=== PATIENT | female | born 1945 | race Caucasian/White ===

== ENCOUNTER 2023-10-14 09:24 | Emergency (ER) | payer MEDICARE, SELFPAY ==
[2023-10-14] VITALS (47 sets, daily range): BP systolic 102–188; BP diastolic 80–112; PULSE 82–105; RESP 13–23; TEMP 36.1–36.8; O2SAT 90–100
--- NOTE | ~2023-10-14 | CT_ITS ---
EXAMINATION: CT cervical spine wo con DATE: 10/14/2023 10:57 INDICATION: Status post fall. Neck pain. TECHNIQUE: Computed tomography (CT) of the paranasal sinuses was performed without intravenous contra st. The dose-length product was 452.46 mGy-cm. Automated exposure control and iterative reconstructio n technique were employed. COMPARISON: None FINDINGS: Vertebral body heights are maintained. There is disc narrowing at C6-7. Mild loss of verteb ral body height at C6, likely chronic. Odontoid process is normal. There is mild-moderate multilevel uncinate and facet hypertrophy. Lung apices are unremarkable. IMPRESSION: 1. No acute abnormality of the cervical spine. 2: Moderate cervical spondylosis. Reviewed, dictated and finalized at location L. FEATHER MACHINE OPERATOR
--- NOTE | ~2023-10-14 | XR_ITS ---
EXAMINATION: XR chest 1V portable 10/14/2023 10:57 INDICATION: Altered mental status PROCEDURE: AP portable chest COMPARISON: No prior studies for comparison. FINDINGS: The lungs are clear. The cardiomediastinal silhouette is within normal limits. There are no pleural effusions. There is no pneumothorax suspected. IMPRESSION: 1: NO ACUTE CARDIOPULMONARY DISEASE. Reviewed, dictated and finalized at location L. HOP DANCER
--- NOTE | ~2023-10-14 | CT_ITS ---
EXAMINATION: CT brain wo con DATE: 10/14/2023 10:57 INDICATION: Status post fall. TECHNIQUE: Computed tomography (CT) of the head was performed without intravenous contrast. The dose- length product was 681.00 mGy-cm. Automated exposure control and iterative reconstruction technique w ere employed. COMPARISON: None FINDINGS: Generalized atrophy. There are scattered mild periventricular and subcortical white matter changes, most likely related to small vessel ischemic disease (microangiopathy). No ventriculomegaly or midline shift. There is intracranial atherosclerosis. Basilar cisterns are patent. No acute infarc tion, hemorrhage or mass. There is mild mucosal thickening of the right maxillary, ethmoid and spheno id sinuses. Mastoids are pneumatized. IMPRESSION: 1. No acute intracranial abnormality. 2: Mild sinusitis. 3: Chronic age-related findings. Reviewed, dictated and finalized at location L. LLIGENCE CONSULTANT
--- NOTE | ~2023-10-14 | XR_ITS ---
AP view of the pelvis and AP and lateral views of the bilateral hips Clinical history: Pain Findings: No acute fracture or dislocation is seen. There is severe osteoarthritis of the right hip j oint, with marked joint space narrowing, reactive sclerosis, bony productive change, and remodeling o f the femoral head. There is mild degenerative change of the left hip joint. There is probable diffus e osteopenia. Soft tissues are unremarkable. Impression: No acute fracture or dislocation evident. 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 Reviewed, dictated and finalized at location M. UTER CONSOLE OPERATOR Impression: No acute fracture or dislocation evident. 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
--- NOTE | 2023-10-14 09:48 | ECG_ITS ---
Measurements Intervals [place] Rate: 89 P: 55 CT: 173 QRS: -51 QRSD: 96 T: 58 QT: 383 QTc: 468 Interpretive Statements SINUS RHYTHM LEFT ANTERIOR FASCICULAR BLOCK [QRS AXIS <= -45, QR IN I, RS IN II] NO PREVIOUS ECG AVAILABLE FOR COMPARISON Electronically Signed On 10-14-2023 19:22:18 EXPERIMENTAL PLASTICS FABRICATOR by Ethel Potts M.D.
[2023-10-14] MEDS: SODIUM CHLORIDE 0.9% IV 1,000 ML 999 ML IV CONT (10:02)
[2023-10-14 10:18] LABS: Basophils Absolute Auto 0.01 K/mm3 (0.00-0.10); Basophils Percent Auto 0.1 % (0.0-1.0); Hematocrit 46.4 % (35.0-42.0); Hemoglobin 15.1 g/dL (11.7-13.8); Immature Granulocyte Absolute 0.06 K/mm3 (0.00-0.00); Immature Granulocyte Percent A 0.7 % (0.0-0.0); Lymphocytes Percent Auto 7.7 % (18.0-42.0); Mean Corpuscular HGB Conc 32.5 g/dL (32.0-36.0); Mean Corpuscular Volume 92.1 fL (78.0-102.0); Mean Platelet Volume 9.8 fl (9.2-11.8); Monocytes Absolute Auto 0.92 K/mm3 (0.10-0.90); Monocytes Percent Auto 10.1 % (2.0-11.0); Neutrophils Absolute Auto 7.4 K/mm3 (1.7-7.2); Neutrophils Percent Auto 81.4 % (50.0-70.0); Platelet Count Result 322 K/mm3 (150-420); Red Blood Count 5.04 M/mm3 (4.20-5.40); Red Cell Distribution Width 14.2 % (11.6-14.4); White Blood Count 9.1 K/mm3 (4.8-10.8)
[2023-10-14 10:32] LABS: INR 1.1; Partial Thromboplastin Time 27.3 SEC (23.90-30.70); Prothrombin Time 12.3 Seconds (9.50-12.10)
[2023-10-14 10:39] LABS: Lactic Acid Reflex 2.3 mmol/L (0.4-2.0)
[2023-10-14 10:49] LABS: Alanine Aminotransferase 180 U/L (14-59); Albumin Level 3.4 g/dL (3.4-5.0); Alkaline Phosphatase 54 U/L (46-116); Ammonia < 10 umol/L (11-32); Anion Gap 9 mmol/L (8-16); Aspartate Amino Transferase 181 U/L (15-37); Bilirubin,Total 1.4 mg/dL (0.00-1.00); Blood Urea Nitrogen 35 mg/dL (7-18); CRP 5.7 mg/dL (0.0-0.9); Carbon Dioxide 28 mmol/L (21-32); Chloride 108 mmol/L (98-108); Creatine Kinase 3286 U/L (26-192); Estimated CRCL calculation 51 ml/min; Estimated Glomerular Filt Rate > 60; Glucose 217 mg/dL (70-99); NT Pro B Type Natriuretic Pept 3072 pg/mL (0-450); Osmolality Calculated 315 mOsm/kg (285-295); Potassium 3.7 mmol/L (3.5-5.1); Sodium 145 mmol/L (136-145); Thyroid Stimulating Hormone 0.27 uIU/mL (0.36-3.74)
[2023-10-14 10:50] LABS: Troponin I 659.3 ng/L (0.00-60.4)
[2023-10-14 10:53] LABS: SARS-CoV-2 RNA PCR Positive (Negative)
[2023-10-14 10:54] LABS: Influenza A QL RT-PCR Negative (Negative); Influenza B QL RT-PCR Negative (Negative); RSV RNA, RT-PCR Negative (Negative)
[2023-10-14 11:02] LABS: Appearance Urine Clear (Clear); Bilirubin Urine 2+ (Negative); Blood Urine 3+ (Negative); Glucose Urine UA Negative (Negative); Ketones Urine 1+ (Negative); Leukocyte Esterase Ur Negative LEU/UL (Negative); Nitrate Urine Negative (Negative); Protein Urine 3+ (Negative); Specific Grav Ur 1.025 (1.010-1.020); pH Urine 6.5 (5.0-8.0)
[2023-10-14 11:07] LABS: Add Urine Microscopic? YES; Bacteria Urine 1+ /hpf; Color Urine Dark Yellow (Yellow); Squamous Epithelial Cell Urine Rare /hpf (Few); WBC Urine None seen /hpf (0-3)
[2023-10-14 11:09] LABS: Amphetamine Screen Urine Negative (Negative); Barbiturate Screen Urine Negative (Negative); Benzodiazepines Screen Urine Negative (Negative); Cannabinoid Screen Urine Negative (Negative); Cocaine Screen Urine Negative (Negative); Methadone Screen Urine Negative (Negative); Opiate Screen Urine Negative (Negative); Phencyclidine Screen Urine Negative (Negative)
--- NOTE | 2023-10-14 11:21 | ED.FALL ---
HPI - Fall General Chief Complaint: Fall Stated Complaint: fell Time Seen by Provider: 10/14/23 09:25 Source: patient and EMS Mode of arrival: EMS Limitations: physical limitation and clinical condition History of Present Illness HPI Narrative: this is a 78-year-old female that according to friends has normal cognitive baseline, has a history of hypertension hyperlipidemia. According to friend patient lives at by herself and unknown last normal friends after a few days to check in on her and found her on the bathroom floor she was responsive and alert but oriented x1 complaining of right hip pain, last normal unknown, the patient does respond is confused not aware of where she is at and recognizes her friends but not able to verbalize her friends names. Otherwise she denies any chest pain or shortness of breath no abdominal pain no fever chills no nausea vomiting no diarrhea or constipation. Patient neurologically is intact can move her upper and lower extremities. complaint: fall Onset (ago): unknown Fall witnessed: no Place fall occurred: home Loss of consciousness: unsure Severity: moderate Related Data Home Medications Medication Instructions Recorded Confirmed alprazolam 0.5 mg tablet 0.5 mg PO BID PRN Anxiety 10/14/23 10/14/23 citalopram 40 mg tablet 40 mg PO DAILY 10/14/23 10/14/23 losartan 25 mg tablet 25 mg PO QHS 10/14/23 10/14/23 simvastatin 20 mg tablet 20 mg PO QHS 10/14/23 10/14/23 Allergies Allergy/AdvReac Type Severity Reaction Status Date / Time fluticasone [From Flonase] AdvReac Anxiety Verified 10/14/23 10:21 lovastatin [From Mevacor] AdvReac Other Verified 10/14/23 10:21 meloxicam AdvReac Other Verified 10/14/23 10:21 Review of Systems Review of Systems: All systems reviewed & are unremarkable except as noted in HPI and below PMFSH Past Medical History Medical History HLD (hyperlipidemia) HTN (hypertension) Exam Const: General: no acute distress and ill appearing Nutritional Appearance: obese Limitations: altered mental status and physical limitations HENMT: Head: normal to inspection Ears: external ears normal and TM's normal bilaterally Face/Nose/Sinus: Normal external nose present Face and sinus: normal facial exam Mouth: Yes Normal oral and palatal mucosa present Eyes: Conjunctivae: conjunctivae normal Pupils: Equal, round and reactive pupils present EOM: EOMs intact bilaterally Neck: Neck: normal visual inspection Chest: Chest palpation & inspection: normal inspection of the chest Resp: Effort & Inspection: normal respiratory effort Auscultation: clear to auscultation bilaterally Cardio: Rate: regular rate Rhythm: regular rhythm GI: GI Palp: Yes Soft to palpation Auscultation: normal bowel sounds Urinary Catheter: Urinary Catheter: patent and draining Back/Spine/Pelvis: Back: no CVA tenderness Skin: General skin exam: normal color Rashes: no rashes Neuro: General: moves all extremities, no meningeal signs and no focal motor deficits Cranial nerves: Yes Nystagmus not present Extrem: General: normal to inspection and no clubbing, cyanosis or edema Course Course Emergency Course: patient had an elevated CK over 3000, IV fluids with normal saline have been started, patient denies chest pain does not have any ST or T changes on EKG but did had elevated troponin in the context of an elevated CK level. The patient had a CT scan of the brain which shows no acute intracranial findings, CT scan performed of the cervical spine with no acute fractures, chest x-ray shows no acute cardiopulmonary abnormalities. BNP is elevated at 3072 with a normal white count H&H is 15 and 46 with an AST of 181 ALT of 180 with a glucose of 217, patient is positive for COVID. Patient's troponins are trending downward with initial troponin of 659 currently down to 615 in the context of a CK of 3286 patient is receiving IV fluids for
[2023-10-14] MEDS: ASPIRIN 81 MG CHEWABLE TABLET 324 MG PO (11:33)
[2023-10-14 13:15] LABS: Reflex Lactic Acid Yes or No Add Lactic
[2023-10-14] MEDS: SODIUM CHLORIDE 0.9% IV 1,000 ML 150 ML IV CONT (13:35)
[2023-10-14 13:39] LABS: Troponin I 616.6 ng/L (0.00-60.4)
[2023-10-14 13:42] LABS: Lactic Acid 1.5 mmol/L (0.4-2.0)
--- NOTE | 2023-10-14 16:31 | PC.NURSE ---
at 1615 found standing in room urinating and defecating on floor near bed. pt cleaned and placed back in bed. pt disoriented but following directions.
--- NOTE | 2023-10-20 12:25 | PC.NURSE ---
blood culture reviewed, no growth noted
== END 2023-10-14 16:25 | disposition short-term general hospital (02) ==
PROVIDERS: Emergency Provider Emergency Medicine; PCP Internal Medicine
DX: U07.1 COVID-19 (principal); M62.82 Rhabdomyolysis; E78.5 Hyperlipidemia, unspecified; I10 Essential (primary) hypertension; R41.0 Disorientation, unspecified; Z79.899 Other long term (current) drug therapy; W19.XXXA Unspecified fall, initial encounter; Y92.009 Unspecified place in unspecified non-institutional (private) residence as the place of occurrence of the external cause
CPT/HCPCS: 36415; 70450; 71045; 72125; 73521; 80053; 80307; 81001; 82140; 82550; 83605; 83880; 84443; 84484; 85025; 85610; 85730; 86140; 87040; 87637; 93005; 96360; 96361; 99285; A9270; J7030

== ENCOUNTER 2023-10-22 15:43 | Inpatient (IN) | payer MEDICARE, SELFPAY ==
[2023-10-22 15:50] VITALS: PULSE 72; RESP 18; O2SAT 95
--- NOTE | 2023-10-22 15:50 | PC.NURSE ---
Patient arrived to hospital via transport service in /, from [place]. Dog Barber met patient in [facility] and escorted patient to unit. Patient able to transfer 1 assist gait belt and walker from / to bed. Patient educated on use of call light, bed controls, and general hospital policies, as well as isolation precautions d/t covid. Patient voices understanding, but displays confusion and forgetfulness. Patient has her robe from home on and that appears to be the only personal item patient has.
[2023-10-22 16:06] VITALS: BMI 28.8
[2023-10-22] MEDS: ACETAMINOPHEN 325 MG TABLET 650 MG PO (20:53)
[2023-10-22] MEDS: LOSARTAN POTASSIUM 25 MG TABLET PO (20:55)
[2023-10-22] MEDS: ALPRAZolam (*CRX) 0.5 MG TABLET PO (20:55)
[2023-10-22 20:59] LABS: Glucose Point of Care 135 mg/dl (65-105)
[2023-10-23] VITALS: BP 147/81; PULSE 82; RESP 16; TEMP 36.2; O2SAT 98
[2023-10-23 08:00] VITALS: BP 139/76; PULSE 71; RESP 14; TEMP 36.4; O2SAT 96
--- NOTE | 2023-10-23 08:51 | PM.IMHP ---
H&P: HPI History of Present Illness Date/Time: 10/23/23 08:51 Chief Complaint: SWing, COVID, Weakness , Confusion Narrative: This is a 78 year old female who was admitted to [facility] and tested positive for COVID-19. She has been experiencing extreme weakness and required extensive treatment . Patient has a past medical history of hyperlipemia, hypertension, and is a smoker. She lives alone at home, but it is unclear weather she will be able to return without additional assistance due to her forcefulness. Patient mention that she lives with her dog and she does not really have any family. Mrs. Adkins has been exhibiting repetitive behavior and requires at time frequent reminders. She appears very pale, and we will draw labs within the next week to assess her stability . Physical therapy will evaluate the patient condition. Patient does not exhibit significant respiratory symptoms. We have accepted patient for Swing bed and she will undergo therapy while case management determines the appropriate discharge plan. [facility] Past Medical History Medical History HLD (hyperlipidemia) HTN (hypertension) Social History Social History Smoking packs per day: 1 Smoking cigarettes per day: 20.0 Years smoked: 20 Smoking pack-years: 20.00 Smoking status: Former smoker Tobacco type: cigarettes Second hand tobacco smoke exposure: No Smoking end date: 10/22/93 Alcohol intake: former Substance use: never Lack of Transportation: No Lack of Food: Never True Current Housing: I Have Housing Concerned About Future Housing: No Difficulty Paying Gas/Electric Bills: No Difficulty Paying for Meds: No Currently Unemployed: No Education: High School Diploma/GED Difficulty w/ Childcare or Family Care: No Spiritual care concerns: No Meds Home Medications and Allergies Home Medications Medication Instructions Recorded Confirmed Type alprazolam 0.5 mg tablet 0.5 mg PO BID PRN Anxiety 10/14/23 10/22/23 History citalopram 40 mg tablet 40 mg PO DAILY 10/14/23 10/22/23 History losartan 25 mg tablet 25 mg PO QHS 10/14/23 10/22/23 History aspirin 81 mg chewable tablet 81 mg PO DAILY 10/22/23 10/22/23 History Allergies Allergy/AdvReac Type Severity Reaction Status Date / Time fluticasone [From Flonase] AdvReac Anxiety Verified 10/14/23 10:21 lovastatin [From Mevacor] AdvReac Other Verified 10/14/23 10:21 meloxicam AdvReac Other Verified 10/14/23 10:21 Vital Signs Vital Signs - 24 hr 10/22/23 15:50 10/23/23 00:00 Temperature 97.1 F L Pulse Rate 72 82 Respiratory Rate 18 16 Blood Pressure 147/81 H Pulse Oximetry 95 98 Oxygen Delivery Room Air Room Air Exam Const: General: comfortable and no acute distress Other: Pale HENMT: Ears: TM's normal bilaterally Mouth: Yes moist mucous membranes Eyes: General: appearance normal, both eyes and all related structures Sclera: sclerae normal Pupils: Equal, round and reactive pupils present Resp: Effort & Inspection: normal respiratory effort Auscultation: clear to auscultation bilaterally Other: intermitten wheeze noted Cardio: Rate: regular rate GI: GI Palp: Yes Soft to palpation Auscultation: normal bowel sounds Skin: General skin exam: normal color (PALE) Assessment and Plan Assessment and plan (1) COVID: Code(s): U07.1 - COVID-19 Status: Acute Assessment and Plan: droplett isolation monitor for respiratory symptoms PT/Ot (2) HTN (hypertension): Code(s): I10 - Essential (primary) hypertension Status: Acute Assessment and Plan: monitor continue home mediction adjust as indicated (3) HLD (hyperlipidemia): Code(s): E78.5 - Hyperlipidemia, unspecified Status: Acute Assessment and Plan: continue home medication
[2023-10-23] MEDS: CITALOPRAM HYDROBROMIDE 20 MG TABLET 40 MG PO (08:57)
[2023-10-23] MEDS: ASPIRIN 81 MG CHEWABLE TABLET PO (08:57)
[2023-10-23 16:35] VITALS: BP 141/69; PULSE 78; RESP 16; TEMP 36.2; O2SAT 99
[2023-10-23] MEDS: LOSARTAN POTASSIUM 25 MG TABLET PO (21:22)
--- NOTE | 2023-10-23 22:32 | PC.NURSE ---
report to andie fernandez rn. all questions answered. released care of pt.
[2023-10-24] VITALS: BP 140/70; PULSE 71; RESP 20; TEMP 36.5; O2SAT 98
--- NOTE | 2023-10-24 00:21 | PC.NURSE ---
Patient up to bathroom x2 since 2300. Patient currenty calling out. Nurse entered room to see what patient wanted and patient wanted to know where everyone is. Nurse explained that staff is aeake and at the desk charting. Patient stated she wanted to get out of bed. Nurse oriented patient to time and place. Patient continued to state she wanted out of bed. Nurse assisted pateint to chair and gave her the call light and belongings. Patient currently watching tv legs elevated in the recliner.
--- NOTE | 2023-10-24 01:26 | PC.NURSE ---
Patient yelled out for assistance. Patient again asked nurse why no one was up walking around. Nurse reoriented patient about time and place and explained that the staff were awake at the desk. Patient requested to go back to bed. Nurse assisted patient to the bathroom and then back to bed. Positioned for comfort, warm blanket provided, fresh ice water given. Call light and belongings within reach.
--- NOTE | 2023-10-24 01:59 | PC.NURSE ---
Patient in bed resting quietly. No c/o offered. Call light and belongings within reach.
--- NOTE | 2023-10-24 03:16 | PC.NURSE ---
Patient resting quietly. Call light and belongings withn reach.
[2023-10-24 08:00] VITALS: BP 138/70; PULSE 65; RESP 14; TEMP 36.3; O2SAT 96
[2023-10-24] MEDS: CITALOPRAM HYDROBROMIDE 20 MG TABLET 40 MG PO (09:31)
[2023-10-24] MEDS: ASPIRIN 81 MG CHEWABLE TABLET PO (09:32)
--- NOTE | 2023-10-24 14:44 | PC.NURSE ---
Dressing changed to right elbow. The elbow area is open the size of a quarter with green drainage moderate amount. No odor noted.
[2023-10-24 16:30] VITALS: BP 170/86; PULSE 73; RESP 18; TEMP 36.3; O2SAT 98
[2023-10-24] MEDS: LOSARTAN POTASSIUM 25 MG TABLET PO (19:59)
[2023-10-24] MEDS: ACETAMINOPHEN 325 MG TABLET 650 MG PO (19:59)
[2023-10-24] MEDS: ALPRAZolam (*CRX) 0.5 MG TABLET PO (19:59)
[2023-10-24 23:46] VITALS: BP 134/80; PULSE 76; RESP 17; TEMP 36.5; O2SAT 96
[2023-10-25 07:48] VITALS: BP 163/79; PULSE 64; RESP 18; TEMP 36.3; O2SAT 97
[2023-10-25] MEDS: ASPIRIN 81 MG CHEWABLE TABLET PO (08:15)
[2023-10-25] MEDS: CITALOPRAM HYDROBROMIDE 20 MG TABLET 40 MG PO (08:32)
--- NOTE | 2023-10-25 12:28 | PM.EVENT ---
Event Note Event Note Event Note: right elbow has a scab on it no drainage noted. It is important to keep open to air but if she continue to bump it a mepilax she would benfit from or a elbow protector and then remove at bed time so she does not bump it.
[2023-10-25 13:26] LABS: Hematocrit 37.7 % (35.0-42.0); Mean Corpuscular HGB Conc 31.8 g/dL (32.0-36.0); Mean Corpuscular Hemoglobin 29.9 pg (27.0-31.0); Mean Platelet Volume 9.3 fl (9.2-11.8); Platelet Count Result 391 K/mm3 (150-420); Red Blood Count 4.01 M/mm3 (4.20-5.40); Red Cell Distribution Width 13.7 % (11.6-14.4); White Blood Count 5.8 K/mm3 (4.8-10.8)
[2023-10-25 13:36] LABS: Anion Gap 5 mmol/L (8-16); Blood Urea Nitrogen 7 mg/dL (7-18); Calcium 8.6 mg/dL (8.5-10.1); Carbon Dioxide 31 mmol/L (21-32); Chloride 99 mmol/L (98-108); Estimated CRCL calculation 55 ml/min; Estimated Glomerular Filt Rate > 60; Glucose 202 mg/dL (70-99); Osmolality Calculated 284 mOsm/kg (285-295); Sodium 135 mmol/L (136-145)
[2023-10-25 16:00] VITALS: BP 136/70; PULSE 69; RESP 18; TEMP 36.5; O2SAT 96
[2023-10-25] MEDS: ACETAMINOPHEN 325 MG TABLET 650 MG PO (20:47)
[2023-10-25] MEDS: ALPRAZolam (*CRX) 0.5 MG TABLET PO (20:49)
[2023-10-25] MEDS: LOSARTAN POTASSIUM 25 MG TABLET PO (20:49)
--- NOTE | 2023-10-25 21:35 | PC.NURSE ---
Patient's pain was re-assessed after given Tylenol 650 mg PO. Patient was sleeping, resting comfortably. FLACC score was 0.
[2023-10-26] VITALS: BP 137/77; PULSE 70; RESP 16; TEMP 36.6; O2SAT 95
--- NOTE | 2023-10-26 06:14 | PC.NURSE ---
Patient was up twice to use the toilet, ambulating well with walker, gait belt, and assist of one. Patient forgets to use the call light, and sets off her bed alarm. When she is reminded to wait until the nurse arrives on the intercom, patient is able to wait for the nurse. She does not like the alarm, but needs it for safety. Otherwise, patient is cooperative and pleasant with staff. Patient was able to sleep through the night except for when up to use the toilet.
[2023-10-26 08:00] VITALS: BP 168/85; PULSE 66; RESP 16; TEMP 36.1; O2SAT 96
[2023-10-26] MEDS: ASPIRIN 81 MG CHEWABLE TABLET PO (08:17)
[2023-10-26] MEDS: CITALOPRAM HYDROBROMIDE 20 MG TABLET 40 MG PO (08:17)
[2023-10-26] MEDS: ACETAMINOPHEN 325 MG TABLET 650 MG PO ×2 (09:55→21:32)
[2023-10-26 16:00] VITALS: BP 135/78; PULSE 65; RESP 16; TEMP 36.4; O2SAT 97
[2023-10-26] MEDS: ALPRAZolam (*CRX) 0.5 MG TABLET PO (21:35)
[2023-10-26] MEDS: LOSARTAN POTASSIUM 25 MG TABLET PO (21:35)
[2023-10-27] VITALS: BP 160/73; PULSE 69; RESP 16; TEMP 36.5; O2SAT 98
[2023-10-27 08:00] VITALS: BP 158/70; PULSE 72; RESP 14; TEMP 36.6; O2SAT 98
[2023-10-27] MEDS: CITALOPRAM HYDROBROMIDE 20 MG TABLET 40 MG PO (09:03)
[2023-10-27] MEDS: ASPIRIN 81 MG CHEWABLE TABLET PO (09:04)
[2023-10-27 16:00] VITALS: BP 146/70; PULSE 64; RESP 16; TEMP 36.3; O2SAT 99
[2023-10-27] MEDS: ALPRAZolam (*CRX) 0.5 MG TABLET PO (20:29)
[2023-10-27] MEDS: LOSARTAN POTASSIUM 25 MG TABLET PO (20:29)
[2023-10-27] MEDS: ACETAMINOPHEN 325 MG TABLET 650 MG PO (20:29)
[2023-10-27 23:21] VITALS: BP 146/73; PULSE 63; RESP 16; TEMP 36.5; O2SAT 96
[2023-10-28 08:00] VITALS: BP 108/60; PULSE 75; RESP 14; TEMP 36.2; O2SAT 96
[2023-10-28] MEDS: ASPIRIN 81 MG CHEWABLE TABLET PO (08:31)
[2023-10-28] MEDS: CITALOPRAM HYDROBROMIDE 20 MG TABLET 40 MG PO (08:31)
--- NOTE | 2023-10-28 11:36 | P.DS_ITS ---
DS: Summary Time Spent with Patient Time attestation: Total time spent providing and/or coordinating discharge services: Discharge Plan Discharge Patient Disposition: Home Health Service Discharge Instructions: Per Care Coordination: [facility] will see you at your home and will call the day prior to their visit. Patient Instructions: Antibiotic Form Stand Alone Forms: General Discharge Information Discharge Medications: No Action alprazolam 0.5 mg tablet 0.5 mg PO BID PRN (Reason: Anxiety) losartan 25 mg tablet 25 mg PO QHS citalopram 40 mg tablet 40 mg PO DAILY aspirin [Adult Aspirin] 81 mg Tablet,Chewable 81 mg PO DAILY Date of admission: 10/22/23 15:43 Primary Care Provider: Sajan Posada Admitting Provider: Viraj Wing Attending physician on admission: Viraj Wing
[2023-10-28 16:35] VITALS: BP 137/65; PULSE 69; RESP 16; TEMP 36.5; O2SAT 97
[2023-10-28] MEDS: ALPRAZolam (*CRX) 0.5 MG TABLET PO (21:29)
[2023-10-28] MEDS: LOSARTAN POTASSIUM 25 MG TABLET PO (21:29)
[2023-10-29] VITALS: BP 154/67; PULSE 60; RESP 16; TEMP 36.2; O2SAT 97
[2023-10-29 07:35] VITALS: BP 130/72; PULSE 60; RESP 18; TEMP 36.2; O2SAT 98
[2023-10-29] MEDS: ASPIRIN 81 MG CHEWABLE TABLET PO (08:45)
[2023-10-29] MEDS: CITALOPRAM HYDROBROMIDE 20 MG TABLET 40 MG PO (08:46)
--- NOTE | 2023-10-29 12:45 | PM.DS ---
DS: Admitting Diagnosis Discharge Date 10/29/2023 Admitting Diagnosis COVID, hypertension, hyperlipidemia DS: Discharge Diagnosis Discharge Diagnosis (1) COVID: Code(s): U07.1 - COVID-19 Status: Acute (2) HTN (hypertension): Code(s): I10 - Essential (primary) hypertension Status: Acute (3) HLD (hyperlipidemia): Code(s): E78.5 - Hyperlipidemia, unspecified Status: Acute (4) Cognitive impairment: Code(s): R41.89 - Other symptoms and signs involving cognitive functions and awareness Status: Acute Assessment and Plan: Likely related to or due to Covid DS: Summary Hospital Course Reason for hospitalization: patient admitted to swing bed for rehabilitation related to physical and cognitive deconditioning due to COVID Hospital Course: Patient admitted to swing bed status for rehabilitation related to physical and cognitive deconditioning due to COVID. She progressed with therapy doing well able to ambulate 180 ft upon discharge. Cognitively, patient was very confused at times and needed to be prompted on multiple step problems. Initial discharge plan was for patient to return home where she lives alone with her dog however due to cognitive impairment she was not able to return home. Referral to local jail per family choice. Attempted to transition SNF days to local jail but insurance declined. She will go assisted pending Medicaid. Status at Discharge Cognitive/behavioral status at discharge: Awake alert confused and pleasant Functional status at discharge: uses cane/walker Overall status at discharge: patient is progressing back to baseline Time Spent with Patient Time attestation: Total time spent providing and/or coordinating discharge services: 35 minutes Time spent: Greater than 30 minutes Exam Narrative: GENERAL: Well-appearing, well-nourished, and in no acute distress. HEAD: Normocephalic, atraumatic. ENT:? Mucous membranes moist. CHEST: Clear to auscultation.? No respiratory distress. HEART: Regular rate and rhythm. ? Normal peripheral pulses. ABDOMEN: Soft, nontender, nondistended. EXTREMITIES: Normal range of motion. No peripheral edema. SKIN: Warm dry normal color NEURO: awake alert confused requiring repeated prompts PSYCH: Normal mood and affect Discharge Plan Discharge Attending physician on discharge: Viraj Wing Discharging Clinician: Alejandro Amezquita Anticipated Discharge Date/Time: 10/29/23 14:30 Patient Disposition: NH [facility] Living Activity: as tolerated Diet: regular and other - see discharge instructions Discharge Instructions: Regular diet with dietary supplements with each meal PT/OT Eval/Treat Ambulate with walker as tolerated Per Care Coordination: Pt to discharge to [facility] assisted care. Patient Instructions: Antibiotic Form, Laxative, Stool Softeners (By mouth), Fall Prevention for Older Adults (DC), Weakness (DC) Stand Alone Forms: General Discharge Information, Residential Discharge Follow-up/Referrals: Sajan Posada MD [Primary Care Provider] - Call for Appointment (post hospital follow up within a month please) Discharge Medications: New docusate sodium 100 mg Capsule 100 mg PO BID PRN (Reason: Constipation) Qty: 0 0RF acetaminophen 325 mg Tablet 650 mg PO Q4H PRN (Reason: Mild Pain (1-3) Or Fever) Qty: 0 0RF Continued losartan 25 mg tablet 25 mg PO QHS citalopram 40 mg tablet 40 mg PO DAILY aspirin 81 mg Tablet,Chewable 81 mg PO DAILY alprazolam 0.5 mg tablet 0.5 mg PO BID PRN (Reason: Anxiety) Qty: 15 0RF Date of admission: 10/22/23 15:43 Primary Care Provider: Sajan Posada Admitting Provider: Viraj Wing Attending physician on admission: Viraj Wing Condition: Stable
--- NOTE | 2023-10-29 13:30 | PC.NURSE ---
Patient discharging to [facility]. Report called to Brii. All belongings gathered together and sent to [facility] with patient. All discharge instructions and education sent with patient. Patient transferred from chair to wheelchair. Aid here to transport patient to custodial via wheelchair. Patient denies any questions at discharge.
--- NOTE | 2023-11-02 09:07 | PC.NURSE ---
Discharge call back, to alf, no questions or concerns voiced
== END 2023-10-29 13:30 | DRG 947 ==
PROVIDERS: Nurse Practitioner Family; Admitting Provider Internal Medicine; PCP Internal Medicine; Visit Provider Internal Medicine
DX: R53.1 Weakness (principal); U07.1 COVID-19; I10 Essential (primary) hypertension; E78.5 Hyperlipidemia, unspecified; R41.89 Other symptoms and signs involving cognitive functions and awareness; F17.210 Nicotine dependence, cigarettes, uncomplicated; Z79.82 Long term (current) use of aspirin
CPT/HCPCS: 36415; 80048; 82948; 85027; 97110; 97161; 97165; 97530; 97535; A9270

== ENCOUNTER 2024-01-29 08:26 | Outpatient (NON) | payer MEDICARE, SELFPAY ==
[2024-01-29 09:06] LABS: Basophils Absolute Auto 0.08 K/mm3 (0.00-0.10); Basophils Percent Auto 1.5 % (0.0-1.0); Eosinophils Absolute Auto 0.32 K/mm3 (0.02-0.50); Eosinophils Percent Auto 5.9 % (1.0-6.0); Hematocrit 39.7 % (35.0-42.0); Hemoglobin 12.5 g/dL (11.7-13.8); Immature Granulocyte Absolute 0.01 K/mm3 (0.00-0.00); Immature Granulocyte Percent A 0.2 % (0.0-0.0); Lymphocytes Absolute Auto 1.84 K/mm3 (1.10-4.50); Lymphocytes Percent Auto 33.8 % (18.0-42.0); Mean Corpuscular HGB Conc 31.5 g/dL (32-36); Mean Corpuscular Hemoglobin 28.2 pg (27.0-31.0); Mean Corpuscular Volume 89.6 fL (78.0-102.0); Mean Platelet Volume 9.6 fl (9.2-11.8); Monocytes Percent Auto 9.2 % (2.0-11.0); Neutrophils Percent Auto 49.4 % (50.0-70.0); Platelet Count Result 258 K/mm3 (150-420); Red Blood Count 4.43 M/mm3 (4.20-5.40); Red Cell Distribution Width 13.9 % (11.6-14.4); White Blood Count 5.5 K/mm3 (4.8-10.8)
[2024-01-29 09:33] LABS: Hemoglobin A1C 6.4 % (<5.7)
[2024-01-29 09:41] LABS: Alanine Aminotransferase 17 U/L (14-59); Albumin Level 3.1 g/dL (3.4-5.0); Alkaline Phosphatase 82 U/L (46-116); Anion Gap 6 mmol/L (8-16); Aspartate Amino Transferase 14 U/L (15-37); Bilirubin,Total 0.3 mg/dL (0.00-1.00); Blood Urea Nitrogen 12 mg/dL (7-18); CRP < 0.5 mg/dL (0.0-0.9); Calcium 8.5 mg/dL (8.5-10.1); Carbon Dioxide 32 mmol/L (21-32); Chloride 106 mmol/L (98-108); Cholesterol 216 mg/dL (0-200); Estimated Glomerular Filt Rate > 60; Glucose 111 mg/dL (70-99); HDL Direct 50 mg/dL (40-60); LDL Cholesterol Calculated 145 mg/dL (<130); Osmolality Calculated 298 mOsm/kg (285-295); Potassium 4.4 mmol/L (3.5-5.1); Sodium 144 mmol/L (136-145); Thyroid Stimulating Hormone 1.99 uIU/mL (0.36-3.74); Total Protein 5.8 g/dL (6.4-8.2); Triglycerides 106 mg/dL (0-150); Uric Acid 4.5 mg/dL (2.6-6.0); Vitamin B12 409 pg/mL (193-986)
[2024-02-01 09:10] LABS: RPR Screen Non-Reactive (Non-Reactive)
[2024-02-01 15:37] LABS: Methylmalonic Acid 105 nmol/L (87-318)
== END 2024-01-29 08:27 | disposition home or self-care (01) ==
LOC: CHSLAB 08:29
PROVIDERS: Visit Provider Internal Medicine
DX: R53.82 Chronic fatigue, unspecified (principal); R41.9 Unspecified symptoms and signs involving cognitive functions and awareness; J84.10 Pulmonary fibrosis, unspecified; E78.5 Hyperlipidemia, unspecified; I10 Essential (primary) hypertension; E11.9 Type 2 diabetes mellitus without complications; R41.89 Other symptoms and signs involving cognitive functions and awareness; Z11.3 Encounter for screening for infections with a predominantly sexual mode of transmission
CPT/HCPCS: 36415; 80053; 80061; 82607; 83036; 83921; 84443; 84550; 85025; 86140; 86592

== ENCOUNTER 2025-02-28 08:32 | Outpatient (CLI) | payer MEDICARE, SELFPAY ==
[2025-02-28 08:46] LABS: Hematocrit 42.8 % (35.0-42.0); Hemoglobin 13.2 g/dL (11.7-13.8); Mean Corpuscular HGB Conc 30.8 g/dL (32-36); Mean Corpuscular Hemoglobin 27.4 pg (27.0-31.0); Mean Corpuscular Volume 88.8 fL (78.0-102.0); Mean Platelet Volume 9.3 fl (9.2-11.8); Platelet Count Result 273 K/mm3 (150-420); Red Blood Count 4.82 M/mm3 (4.20-5.40); Red Cell Distribution Width 14.5 % (11.6-14.4); White Blood Count 5.4 K/mm3 (4.8-10.8)
[2025-02-28 09:15] LABS: Alanine Aminotransferase 17 U/L (14-59); Albumin Level 3.4 g/dL (3.4-5.0); Alkaline Phosphatase 119 U/L (46-116); Anion Gap 8 mmol/L (4-12); Aspartate Amino Transferase 10 U/L (15-37); Bilirubin,Total 0.5 mg/dL (0.00-1.00); Blood Urea Nitrogen 13 mg/dL (7-18); Calcium 8.6 mg/dL (8.5-10.1); Carbon Dioxide 29 mmol/L (21-32); Chloride 107 mmol/L (98-108); Cholesterol 208 mg/dL (0-200); Estimated Glomerular Filt Rate > 60; Glucose 141 mg/dL (70-99); HDL Direct 50 mg/dL (40-60); LDL Cholesterol Calculated 124 mg/dL (<130); Osmolality Calculated 300 mOsm/kg (285-295); Potassium 4.4 mmol/L (3.5-5.1); Sodium 144 mmol/L (136-145); Thyroid Stimulating Hormone 2.11 uIU/mL (0.36-3.74); Total Protein 6.8 g/dL (6.4-8.2); Triglycerides 172 mg/dL (0-150)
== END 2025-02-28 08:33 | disposition home or self-care (01) ==
LOC: CHSLAB 08:35
PROVIDERS: PCP Internal Medicine; Visit Provider Internal Medicine
DX: J84.10 Pulmonary fibrosis, unspecified (principal); I25.2 Old myocardial infarction; I10 Essential (primary) hypertension; E78.5 Hyperlipidemia, unspecified
CPT/HCPCS: 36415; 80053; 80061; 84443; 85027

== ENCOUNTER 2025-06-15 11:11 | Outpatient (CLI) | payer MEDICARE, SELFPAY ==
--- OUTSIDE RECORDS SUMMARY | 2025-06-15 11:14 | XMS_ITS | Clinical Summary ---
Author Organization [facility] Address [address] [place] [id number] Care Team Providers Care Gate Keeper Name Role Phone Ryan Posada MD Primary Care Provider [phone] Allergies No known active allergies Medications losartan (COZAAR) 50 MG tablet Take 1 tablet (50 mg total) by mouth daily. 30 tablet 10/23/2023 Active citalopram (CELEXA) 40 MG tablet Take 1 tablet (40 mg total) by mouth daily. 30 tablet 10/23/2023 Active aspirin 81 MG chewable tablet Chew 1 tablet (81 mg total) by mouth daily. 30 tablet 10/23/2023 Active ALPRAZolam (XANAX) 0.5 MG tabletIndication s:Anxiety Take 1 tablet (0.5 mg total) by mouth 2 (two) times daily as needed for Anxiety. 20 tablet 10/22/2023 Active Active Problems Problem Noted Date Diagnosed Date COVID 10/14/2023 Social History Tobacco Use Types Packs/Day Years Used Date Smoking Tobacco: Never Passive Smoke Exposure: Never Smokeless Tobacco: Never Tobacco Cessation:Counseling Given: Not Answered [facility] Utilities Answer Date Recorded In the past 12 months has e [facility] [employer], gas, oil, or water [employer] threatened to shut off services in your home? Patient unable to answer 10/15/2023 Humiliation, Afraid, Rape, a nd Kick questionnaire Answer Date Recorded Within the last year, have y ou been afraid of your partner or ex-partner? Patient unable to answer 10/15/2023 Within the last year, have y ou been humiliated or emotionally abused in other ways by your partner or ex-partner? Patient unable to answer 10/15/2023 Within the last year, have y ou been kicked, hit, slapped, or otherwise physically hurt by your partner or ex-partner? Patient unable to answer 10/15/2023 Within the last year, have y ou been raped or forced to have any kind of sexual activity by your partner or ex-partner? Patient unable to answer 10/15/2023 Overall Financial Resource Strain (CARDIA) Answe r Date Recorded How hard is it for you to pa y for the very basics like food, housing, medical care, and heating? Patient unable to answer 10/15/2023 Hunger Vital Sign Answer Date Recorded Within the past 12 months, y ou worried that your food would run out before you got the money to buy more. Patient unable to answer 10/15/2023 Within the past 12 months, t he food you bought just didn't last and you didn't have money to get more. Patient unable to answer 10/15/2023 PRAPARE - Transportation Answer Date Re corded In the past 12 months, has l ack of transportation kept you from medical appointments or from getting medications? Patient unable to answer 10/15/2023 In the past 12 months, has l ack of transportation kept you from meetings, work, or from getting things needed for daily living? Patient unable to answer 10/15/2023 Housing Stability Vital Sign Answer Mike e Recorded In the last 12 months, was t here a time when you were not able to pay the mortgage or rent on time? Patient unable to answer 10/15/2023 In the last 12 months, how m any places have you lived? 1 10/15/2023 In the last 12 months, was t here a time when you did not have a steady place to sleep or slept in a skilled nursing (including now)? 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 Gender Identity Not on file Sexual Orientation Not on file Last Filed Vital Signs Vital Sign Reading Time Taken Comments Blood Pressure 148/74 10/22/2023 8:09 AM SEAL MIXING OPERATOR Pulse 72 10/22/2023 8:09 AM SEAL MIXING OPERATOR Temperature 36.6 C (97.9 F) 10/22/2023 8:09 AM SEAL MIXING OPERATOR Respiratory Rate 18 10/22/2023 8:09 AM SEAL MIXING OPERATOR Oxygen Saturation 94% 10/22/2023 8:09 AM SEAL MIXING OPERATOR Inhaled Oxygen Concentration - - Weight 85 kg (187 lb 6.3 oz) 10/14/2023 7:46 PM SEAL MIXING OPERATOR Height 162.6 cm (5' 4) 10/14/2023 7:46 PM SEAL MIXING OPERATOR Body Mass Index 32.17 10/14/2023 7:46 PM SEAL MIXING OPERATOR Plan of Treatment Health Maintenance Due Date Last Done Comments Hepatitis C 1964 Zoster Vaccines (1 of 2) 1996 Annual Medicare Wellness Visit 2011 Dexa Scan (General) 2011 RSV Immunization or 60+ Years (1 - 1-dose 75+ series) 2021 DTaP, Tdap and Td Vaccines ( 2 - Td or Tdap) 02/20/2023 02/20/2013 COVID-19 Vaccine ( - 2023-2 5 season) 2024 11/29/2021, 01/17/2021, 12/27/2020 Pneumococcal Vaccine: 50+ Years Completed 11/19/2016, 02/12/2015 Meningococcal B Vaccine Aged Out No l onger eligible based on patient's age to complete this topic Meningococcal Vaccine Aged Out No olga mike eligible based on patient's age to complete this topic RSV Immunizations Under 20 Months Aged Out No longer eligible b ased on patient's age to complete this topic Insurance MEDICAID Member Subscriber Plan / Payer (Ef fective 2023-Present) Name:Tanya Adkins Relation to Subscriber:Self Name:Tanya Adkins Payer ID:Not on file Group ID:Not on file Type:Not on file [facility] [id number] [address] Advance Directives Documents on File Type Date Recorded Patient Shuttle Operator Expl anation Advance Directives and Livin g Will 02/01/2024 4:22 PM * Full Code (Latest Code Status on File) Date Activated Date Inactivated Comments 10/14/2023 6:36 PM 10/22/2023 4:31 PM Care Teams Gate Keeper Relationship Specialty Start Date End Date Ryan Posada MD [address] [place] [address] PCP - General INTERNAL MEDICINE 10/08/23
[2025-06-15 11:59] LABS: Alanine Aminotransferase 19 U/L (6-35); Albumin Level 3.9 g/dL (3.5-5.1); Alkaline Phosphatase 83 U/L (38-126); Anion Gap 5 mmol/L (4-12); Aspartate Amino Transferase 26 U/L (14-36); Bilirubin,Total 0.5 mg/dL (0.2-1.3); Blood Urea Nitrogen 13 mg/dL (7-17); Calcium 9.0 mg/dL (8.4-10.2); Carbon Dioxide 26 mmol/L (22-30); Chloride 108 mmol/L (98-107); Cholesterol 217 mg/dL (0-200); Estimated Glomerular Filt Rate > 60; Glucose 124 mg/dL (65-110); HDL Direct 37 mg/dL; Osmolality Calculated 289 mOsm/kg (285-295); Potassium 4.6 mmol/L (3.4-5.0); Sodium 139 mmol/L (137-145); Total Protein 6.4 g/dL (6.3-8.2); Triglycerides 250 mg/dL (<150)
[2025-06-15 12:02] LABS: Hemoglobin A1C 6.5 % (<5.7)
[2025-06-15 12:29] LABS: Thyroid Stimulating Hormone 1.140 uIU/mL (0.465-4.680)
== END 2025-06-15 11:12 | disposition home or self-care (01) ==
LOC: CHSLAB 11:12
PROVIDERS: PCP Internal Medicine; Visit Provider Internal Medicine
DX: E78.5 Hyperlipidemia, unspecified (principal); I10 Essential (primary) hypertension; E11.9 Type 2 diabetes mellitus without complications
CPT/HCPCS: 36415; 80053; 80061; 83036; 84443